=== PATIENT | female | born 1965 | race Hispanic/Latino ===

== ENCOUNTER → 2023-03-29 | Day surgery (SDC) | payer OTHER ==
[~2023-03-29] MED LIST: CLONAZEPAM0.5 MG PO; FENTANYL CITRATE/PF 100MCG/2 ML INJ ONE; LACTATED RINGER'S 1,000 ML ONE; LEVOTHYROXINE50 MCG PO; LIDOCAINE HCL 2% LOCAL INJ 5 ML SDV VIAL INJ ONE; LORAZEPAM1 MG PO; Linzess PO; METFORMIN HCL500 MG PO; METOCLOPRAMIDE HCL 10 MG/2ML VIAL ONE; PROPOFOL IV EMULSION 10 MG/ML 20 ML VIAL ONE; PROPOFOL IV EMULSION 10 MG/ML 50 ML VIAL IV ONE; TIZANIDINE HCL4 MG PO; Z.0.DICYCLOMINE HCL1 PO; Z.0.LEXAPRO20 MG PO; Z.0.NEXIUM40 MG PO; Z.0.TEMAZEPAM15 MG PO; zofran PO
[2023-03-29 12:43] VITALS: BP 139/93; PULSE 76; RESP 18; O2SAT 98
[2023-04-02 07:19] LABS: ENDOMYSIAL ANTIBODIES, IGA Negative (Negative)
== END | disposition home or self-care (01) ==
LOC: OR 09:25
PROVIDERS: ATTEND Internal Medicine Gastroenterology
DX: K29.50 Unspecified chronic gastritis without bleeding (principal); Z86.010 Personal history of colon polyps; K20.90 Esophagitis, unspecified without bleeding; K21.9 Gastro-esophageal reflux disease without esophagitis; K57.30 Diverticulosis of large intestine without perforation or abscess without bleeding; K64.8 Other hemorrhoids; E11.9 Type 2 diabetes mellitus without complications; E05.90 Thyrotoxicosis, unspecified without thyrotoxic crisis or storm; F32.A Depression, unspecified; F41.9 Anxiety disorder, unspecified; Z88.1 Allergy status to other antibiotic agents; Z01.810 Encounter for preprocedural cardiovascular examination; Z79.84 Long term (current) use of oral hypoglycemic drugs; Z79.899 Other long term (current) drug therapy
CPT/HCPCS: 36415; 43239; 45380; 82784; 82948; 83516; 83630; 83993; 86140; 86256; 87045; 87177; 87324; 87328; 87449; 93005; C9113; J3010; J7121; 45378; J2001; J2765

== ENCOUNTER → 2025-01-18 | Day surgery (SDC) | payer OTHER ==
[~2025-01-18] MED LIST changes: -LACTATED RINGER'S 1,000 ML ONE; +MAGNESIUM OXID400 MG PO; +OMEGA 3 1,0001 EACH PO; -PROPOFOL IV EMULSION 10 MG/ML 50 ML VIAL IV ONE
[2025-01-18] MEDS: LACTATED RINGER'S 1,000 ML ONE (12:42)
[2025-01-18 14:55] VITALS: BP 120/89; PULSE 63; RESP 16; TEMP 97.5; O2SAT 98
[2025-01-21 09:12] LABS: ENDOMYSIAL ANTIBODIES, IGA Negative (Negative)
[2025-01-21 13:50] LABS: TISSUE TRANSGLUTAMINASE IGA AB <2 U/mL (0-3)
== END | disposition home or self-care (01) ==
LOC: OR 12:06
PROVIDERS: ATTEND Internal Medicine Gastroenterology
DX: K20.90 Esophagitis, unspecified without bleeding (principal); K29.50 Unspecified chronic gastritis without bleeding; E11.9 Type 2 diabetes mellitus without complications; E66.811 Obesity, class 1; Z88.1 Allergy status to other antibiotic agents; Z79.84 Long term (current) use of oral hypoglycemic drugs; Z90.49 Acquired absence of other specified parts of digestive tract; Z86.0100 Personal history of colon polyps, unspecified; Z68.31 Body mass index [BMI] 31.0-31.9, adult; Z79.899 Other long term (current) drug therapy; Z01.810 Encounter for preprocedural cardiovascular examination
CPT/HCPCS: 36415; 43239; 82784; 82948; 83516; 86256; 93005; J2003; J2470; J2704; J2765; J3010; J7121